=== PATIENT | female | born 1965 | race Caucasian/White ===

== ENCOUNTER 2019-05-08 14:45 | Outpatient (CLI) | payer BC, SELFPAY ==
--- NOTE | ~2019-05-08 | CT_ITS ---
EXAMINATION: CT abdomen pelvis w con DATE: 05/08/2019 16:08 INDICATION: Left lower quadrant abdominal pain. TECHNIQUE: Computed tomography (CT) of the abdomen and pelvis was performed with 100 mL Omnipaque 350 intravenous contrast. Automated exposure control and iterative reconstruction technique were employe d. The dose-length product was 1364.67 mGy-cm. COMPARISON: None. FINDINGS: The visualized portions of the lung bases demonstrate mild atelectasis. No pleural effusion . The heart size is normal. No pericardial effusion. The liver, gallbladder, spleen, pancreas, adrena l glands, and kidneys are normal. There are no dilated loops of bowel. There is wall thickening of th e proximal sigmoid colon. There are no pathologically enlarged lymph nodes. There is no free intraper itoneal fluid. There is a 2.3 cm nonaggressive lytic lesion in right ilium, likely benign. There is s evere lower lumbar spondylosis. There is a 1.7 cm hyperdense mass at the skin on the right posteriorl y at the level of L1. IMPRESSION: 1. Wall thickening of proximal sigmoid colon, consistent with colitis. 2. 1.7 cm mass at the skin on the right posteriorly at the level of L1. This finding may be benign or malignant. Correlate with physical exam. Reviewed, dictated and finalized at location A. [employer] IMPRESSION: 1. Wall thickening of proximal sigmoid colon, consistent with colitis. 2. 1.7 cm mass at the skin on the right posteriorly at the level of L1. This fi nding may be benign or malignant. Correlate with physical exam.
[2019-05-08 15:00] LABS: Basophils Absolute Auto 0.06 K/mm3 (0.00-0.10); Basophils Percent Auto 0.8 % (0.0-1.0); Eosinophils Absolute Auto 0.19 K/mm3 (0.02-0.50); Eosinophils Percent Auto 2.4 % (1.0-6.0); Hematocrit 41.5 % (35.0-49.0); Hemoglobin 14.2 g/dL (12.0-15.0); Immature Granulocyte Absolute 0.02 K/mm3 (0.00-0.00); Immature Granulocyte Percent A 0.3 % (0.0-0.0); Lymphocytes Absolute Auto 2.35 K/mm3 (1.10-4.50); Lymphocytes Percent Auto 29.9 % (18.0-42.0); Mean Corpuscular HGB Conc 34.2 g/dL (32.0-36.0); Mean Corpuscular Volume 87.6 fL (78.0-102.0); Monocytes Absolute Auto 0.59 K/mm3 (0.10-0.90); Monocytes Percent Auto 7.5 % (2.0-11.0); Neutrophils Absolute Auto 4.7 K/mm3 (1.7-7.2); Neutrophils Percent Auto 59.1 % (50.0-70.0); Platelet Count Result 246 K/mm3 (150-420); Red Blood Count 4.74 M/mm3 (4.20-5.40); Red Cell Distribution Width 12.6 % (11.6-14.4); White Blood Count 7.9 K/mm3 (4.8-10.8)
[2019-05-08 15:20] LABS: Iron 66 ug/dL (50-170); Percent Iron Saturation 21 % (12-57)
[2019-05-08 15:26] LABS: Alanine Aminotransferase 25 U/L (14-59); Albumin Level 3.9 g/dL (3.4-5.0); Alkaline Phosphatase 130 U/L (46-116); Anion Gap 12.7 mmol/L (7-16); Aspartate Amino Transferase 17 U/L (15-37); Bilirubin,Total 0.4 mg/dL (0.00-1.00); Blood Urea Nitrogen 16 mg/dL (7-18); CRP 0.8 mg/dL (0.0-0.9); Calcium 9.1 mg/dL (8.5-10.1); Carbon Dioxide 26 mmol/L (21-32); Chloride 107 mmol/L (98-108); Estimated Glomerular Filt Rate > 60; Ferritin 172 ng/mL (8-252); Glucose 89 mg/dL (70-99); Osmolality Calculated 294 mOsm/kg (285-295); Potassium 3.7 mmol/L (3.5-5.1); Sodium 142 mmol/L (136-145); Total Protein 7.8 g/dL (6.4-8.2)
[2019-05-08 15:35] LABS: Lactic Acid 0.6 mmol/L (0.4-2.0)
[2019-05-08 15:58] LABS: Erythrocyte Sedimentation Rate 25 mm/hr (0-20)
== END 2019-05-08 14:46 | disposition home or self-care (01) ==
PROVIDERS: PCP Internal Medicine; Visit Provider Internal Medicine
DX: R10.32 Left lower quadrant pain (principal); K92.1 Melena; R50.9 Fever, unspecified
CPT/HCPCS: 36415; 74177; 80053; 82728; 83540; 83550; 83605; 85025; 85652; 86140; Q9965

== ENCOUNTER 2019-06-23 00:36 | Day surgery (SDC) | payer BC, SELFPAY ==
[2019-06-18 10:34] VITALS: BMI 44.1
[2019-06-23] MEDS: LACTATED RINGERS 1,000 ML 150 ML IV CONT (11:23)
--- NOTE | 2019-06-23 11:26 | P.PNAN_ITS ---
Anes - Initial Pre Proc Eval Procedure: Operation Date: 06/23/19 12:00 Proposed Procedures p Colonoscopy - Gunner Mcmullen MD Date/Time: 06/23/19 11:26 Surgeon: Gunner Mcmullen MD Pre Op Diagnosis: Hematochezia Patient Data Age: 54 Gender: F Height: 5 ft 7 in Weight: 129.3 kg Allergies Allergy/AdvReac Type Severity Reaction Status Date / Time No Known Allergies Allergy Verified 06/23/19 11:17 Home Medications Medication Instructions Recorded Confirmed Type No Home Medications 06/18/19 06/18/19 History Patient hx anesthesia problems: none Family hx anesthesia problems: none [facility] Past Medical History Medical History (Updated 06/23/19 @ 11:26 by Saleem Farrell MD) Arthritis GERD (gastroesophageal reflux disease) Morbid obesity Anes - Eval Final PreProcedure Day of Procedure 06/23/19 11:26 Patient weight: morbidly obese Heart: regular rate and rhythm Lungs: clear to auscultation Airway: Mallampati scale class III Neurological: alert and oriented Last oral intake: >/= 8 hours ASA classification: III Emergent: no Anesthetic plan: proceed Anesthesia type and monitoring: general GIVS and standard monitoring Informed Consent: The patient's anesthetic plan and its attendant risks and benefits were discussed with the patient/family/POA. Questions were solicited and answers provided to the satisfaction of the patient/family/POA.
--- NOTE | 2019-06-23 11:29 | WPDANESEPPF ---
Anes - Initial Pre Proc Eval Procedure: Operation Date: 06/23/19 12:00 Proposed Procedures p Colonoscopy - Gunner Mcmullen MD Date/Time: 06/23/19 11:29 Surgeon: Gunner Mcmullen MD Pre Op Diagnosis: Hematochezia Patient Data Age: 54 Gender: F Height: 5 ft 7 in Weight: 129.3 kg Allergies Allergy/AdvReac Type Severity Reaction Status Date / Time No Known Allergies Allergy Verified 06/23/19 11:17 Home Medications Medication Instructions Recorded Confirmed Type No Home Medications 06/18/19 06/18/19 History Patient hx anesthesia problems: none Family hx anesthesia problems: none [facility] Past Medical History Medical History (Updated 06/23/19 @ 11:26 by Saleem Farrell MD) Arthritis GERD (gastroesophageal reflux disease) Morbid obesity Anes - Eval Final PreProcedure Day of Procedure 06/23/19 11:29 Patient weight: morbidly obese Heart: regular rate and rhythm Lungs: clear to auscultation Airway: Mallampati scale class III Neurological: alert and oriented Last oral intake: >/= 8 hours ASA classification: III Emergent: no Anesthetic plan: proceed Anesthesia type and monitoring: general GIVS and standard monitoring Informed Consent: The patient's anesthetic plan and its attendant risks and benefits were discussed with the patient/family/POA. Questions were solicited and answers provided to the satisfaction of the patient/family/POA.
--- NOTE | 2019-06-23 11:52 | PM.HPGS ---
History of Present Illness History of Present Illness Consent: Risks, benefits, and alternatives of a colonoscopy have been discussed and questions answered. Problems of possible perforation 1 out of a 1000 times has been discussed. Patient agrees to proceed with procedure. Chief complaint: Hematochezia Narrative: Geraldine Cerna is a 54 year old female Who is seen at the request of Dr. soto from [place] [id number]. Approximately 1 and half months ago she had onset of acute abdominal pain and later was found to have apparent colitis even though she had a normal white count. There was noted to be on CT scan on 05/08/2019 wall thickening of the proximal sigmoid colon. Her cbc and CMP were normal at that time lactic acid was 0.6. Patient stated that she had some blood per rectum for a few days prior to her CT scan on 05/08/2019. This has cleared up since then. She had no trouble tolerating her prep to come for this colonoscopy. She presents this time after a bowel prep for colonoscopy because of positive Hemoccult. She does have a previous history of Sigmoid polyp being removed in 2016. Review of Systems Constitutional: Constitutional: Reports no additional constitutional complaints, Reports fatigue and Denies malaise Eyes: Eyes: Denies change in vision and Denies loss of vision ENT: Reports Normal hearing present, Denies change in voice, Denies dizziness, Denies hoarseness and Denies sore throat Cardiovascular: Cardiovascular: Denies chest pain, Denies leg edema and Denies dyspnea Respiratory: Respiratory: Denies cough, Denies dyspnea and Denies wheezing Gastrointestinal: Gastrointestinal: Denies hematochezia, Denies change in bowel habits and Denies heartburn Genitourinary: Genitourinary: Denies urinary frequency and Denies urinary incontinence Neurologic: Reports Normal hearing present, Denies confusion, Denies dizziness, Denies loss of vision, Denies memory loss and Denies seizure-like activity Psychiatric: Psychiatric: Denies confusion, Denies depression and Denies memory loss Endocrine: Endocrine: Denies cold intolerance and Reports fatigue Hematologic/Lymphatic: Hematologic/Lymphatic: Denies easy bleeding and Denies easy bruising Allergic/Immunologic: Allergic/Immunologic: Denies wheezing PMFSH Past Medical History Medical History (Updated 06/23/19 @ 11:59 by Gunner Mcmullen MD) Arthritis Colitis without complication GERD (gastroesophageal reflux disease) History of colon polyps (~2015) Morbid obesity Meds Home Medications and Allergies Home Medications Medication Instructions Recorded Confirmed Type No Home Medications 06/18/19 06/18/19 History Allergies Allergy/AdvReac Type Severity Reaction Status Date / Time No Known Allergies Allergy Verified 06/23/19 11:17 Exam Const: General: cooperative, healthy appearing, no acute distress, well developed and alert; No confusion Nutritional Appearance: well nourished Orientation/consciousness: patient oriented x3 and No confusion Limitations: no limitations HENMT: Head: normal to inspection, normocephalic and atraumatic Ears: hearing grossly normal bilaterally General nose exam: Normal external nose present Face and sinus: no edema Mouth: Yes Normal oral and palatal mucosa present and Yes lip normal Throat: posterior oropharynx normal Eyes: General: appearance normal, both eyes and all related structures Sclera: sclerae normal Pupils: Equal, round and reactive pupils present EOM: EOMs intact bilaterally Neck: Neck: normal visual inspection, no lymphadenopathy, trachea midline and supple Resp: Effort & Inspection: normal respiratory effort and able to speak in complete sentences Auscultation: clear to auscultation bilaterally Cardio: Jugular venous distension: no JVD Rate: regular rate Rhythm: regular rhythm GI: Inspection: normal to inspection and obesity ( BMI 44) GI Palp: Yes Soft to palpation, No Tenderness to palpation present (GI)
[2019-06-23 13:40] VITALS: BP 137/76; PULSE 87; RESP 18; TEMP 36.6; O2SAT 100
[2019-06-23 13:50] VITALS: BP 144/76; PULSE 88; RESP 17; O2SAT 100
[2019-06-23 14:00] VITALS: BP 132/70; PULSE 78; RESP 14; O2SAT 100
== END 2019-06-23 14:21 | disposition home or self-care (01) ==
PROVIDERS: PCP Internal Medicine; Visit Provider Surgery
PROC: 0DJD8ZZ Inspection of Lower Intestinal Tract, Via Natural or Artificial Opening Endoscopic (ICD-10-PCS; CPT 45378; principal; 2019-06-23 12:00)
DX: K92.1 Melena (principal); D12.0 Benign neoplasm of cecum; K63.5 Polyp of colon; R19.4 Change in bowel habit; K21.9 Gastro-esophageal reflux disease without esophagitis; M19.90 Unspecified osteoarthritis, unspecified site; E66.01 Morbid (severe) obesity due to excess calories; Z68.41 Body mass index [BMI] 40.0-44.9, adult
CPT/HCPCS: 45380; 88305; J2704; J7120

== ENCOUNTER 2019-07-31 15:15 | Outpatient (CLI) | payer BC, SELFPAY ==
--- NOTE | ~2019-07-31 | XR_ITS ---
EXAMINATION: XR chest 2V DATE: 07/31/2019 16:28 INDICATION: Chronic cough, tachycardia TECHNIQUE: PA and lateral views of the chest are obtained. COMPARISON: None available FINDINGS: The lungs are free of acute opacities. There is no pleural effusion or pneumothorax. The ca rdiomediastinal silhouette is normal. There is mild thoracic spondylosis. A cardiac monitoring device projects over the subcutaneous tissues of the midline anterior chest wall. IMPRESSION: 1. No acute cardiopulmonary abnormality. Reviewed, dictated and finalized at location A.
--- NOTE | 2019-07-31 15:25 | ECG_ITS ---
Measurements Intervals [place] Rate: 79 P: 56 ME: 120 QRS: 53 QRSD: 90 T: 39 QT: 371 QTc: 426 Interpretive Statements SINUS RHYTHM POSSIBLE LEFT ATRIAL ENLARGEMENT BORDERLINE ST ABNORMALITY- ANTEROLATERAL LEADS BASELINE WANDER- AVF BORDERLINE ECG Electronically Signed On 07-31-2019 16:02:45 CDT by Berry Lawson D.O.
[2019-07-31 16:22] LABS: Basophils Absolute Auto 0.05 K/mm3 (0.00-0.10); Basophils Percent Auto 0.7 % (0.0-1.0); Eosinophils Absolute Auto 0.17 K/mm3 (0.02-0.50); Eosinophils Percent Auto 2.3 % (1.0-6.0); Hematocrit 41.3 % (35.0-49.0); Immature Granulocyte Absolute 0.02 K/mm3 (0.00-0.00); Immature Granulocyte Percent A 0.3 % (0.0-0.0); Lymphocytes Absolute Auto 1.82 K/mm3 (1.10-4.50); Lymphocytes Percent Auto 25.1 % (18.0-42.0); Mean Corpuscular HGB Conc 33.9 g/dL (32.0-36.0); Mean Corpuscular Hemoglobin 30.1 pg (27.0-31.0); Mean Corpuscular Volume 88.8 fL (78.0-102.0); Mean Platelet Volume 9.9 fl (9.2-11.8); Monocytes Absolute Auto 0.46 K/mm3 (0.10-0.90); Monocytes Percent Auto 6.4 % (2.0-11.0); Neutrophils Absolute Auto 4.7 K/mm3 (1.7-7.2); Neutrophils Percent Auto 65.2 % (50.0-70.0); Platelet Count Result 232 K/mm3 (150-420); Red Blood Count 4.65 M/mm3 (4.20-5.40); Red Cell Distribution Width 12.9 % (11.6-14.4); White Blood Count 7.2 K/mm3 (4.8-10.8)
[2019-07-31 16:48] LABS: BNP 33.2 pg/mL (0-100)
[2019-07-31 17:10] LABS: Alanine Aminotransferase 27 U/L (14-59); Albumin Level 3.8 g/dL (3.4-5.0); Alkaline Phosphatase 126 U/L (46-116); Anion Gap 11.1 mmol/L (7-16); Aspartate Amino Transferase 17 U/L (15-37); Bilirubin,Total 0.3 mg/dL (0.00-1.00); Blood Urea Nitrogen 25 mg/dL (7-18); Carbon Dioxide 28 mmol/L (21-32); Chloride 104 mmol/L (98-108); Estimated Glomerular Filt Rate > 60; Free T3 2.82 pg/mL (2.18-3.98); Free T4 Free Thyroxine 0.96 ng/dL (0.76-1.46); Glucose 85 mg/dL (70-99); Magnesium 1.9 mg/dL (1.8-2.4); Osmolality Calculated 291 mOsm/kg (285-295); Potassium 4.1 mmol/L (3.5-5.1); Sodium 139 mmol/L (136-145); Thyroid Stimulating Hormone 1.93 uIU/mL (0.36-3.74); Total Protein 7.2 g/dL (6.4-8.2)
[2019-08-02 21:30] LABS: Alpha-1-Antitrypsin, QN 138 mg/dL (83-199)
[2019-08-04 08:20] LABS: Immunoglobulin E 15 kU/L (<=114)
--- NOTE | 2019-09-01 09:45 | WPDHOLTEREM ---
Holter/Event Monitor Holter/Event Monitor Date of procedure: 07/31/19 Procedure Type: 30 day event monitor Indications: Palpitations Conclusion: 1. 30 day event monitor from 07/31/19-08/29/19. This is a symptom or auto trigger transmissions only. There are 12 available transmissions for analysis. 2. Underlying rhythm is sinus rhythm. Per transmissions, HR range 70-88 bpm. 3. No premature supraventricular complexes or arrhythmias. 4. There are intermittent premature ventriclar complexes. No ventricular tachycardia. 5. No signifiicant pauses greater than 3 seconds. 6. Patient reports 9 epsisodes of symptoms of shortness of breath, heart racing and symptom other than listed which demonstrate sinus rhythm, HR range 71-88 bpm and each episode had PVC's.
== END 2019-07-31 15:16 | disposition home or self-care (01) ==
PROVIDERS: PCP Internal Medicine; Visit Provider Internal Medicine
DX: R05 Cough (principal); R00.2 Palpitations; R06.00 Dyspnea, unspecified
CPT/HCPCS: 36415; 71046; 80053; 82103; 82785; 83735; 83880; 84439; 84443; 84481; 85025; 93005; 93270

== ENCOUNTER 2020-06-11 08:11 | Outpatient (CLI) | payer BC, SELFPAY ==
[2020-06-11 08:26] LABS: Basophils Absolute Auto 0.04 K/mm3 (0.00-0.10); Basophils Percent Auto 0.9 % (0.0-1.0); Eosinophils Absolute Auto 0.19 K/mm3 (0.02-0.50); Eosinophils Percent Auto 4.2 % (1.0-6.0); Hematocrit 39.9 % (35.0-49.0); Immature Granulocyte Absolute 0.01 K/mm3 (0.00-0.00); Immature Granulocyte Percent A 0.2 % (0.0-0.0); Lymphocytes Absolute Auto 1.74 K/mm3 (1.10-4.50); Lymphocytes Percent Auto 38.7 % (18.0-42.0); Mean Corpuscular HGB Conc 32.6 g/dL (32.0-36.0); Mean Corpuscular Hemoglobin 29.4 pg (27.0-31.0); Mean Corpuscular Volume 90.3 fL (78.0-102.0); Monocytes Percent Auto 8.9 % (2.0-11.0); Neutrophils Absolute Auto 2.1 K/mm3 (1.7-7.2); Neutrophils Percent Auto 47.1 % (50.0-70.0); Platelet Count Result 213 K/mm3 (150-420); Red Blood Count 4.42 M/mm3 (4.20-5.40); Red Cell Distribution Width 12.9 % (11.6-14.4); White Blood Count 4.5 K/mm3 (4.8-10.8)
[2020-06-11 08:27] LABS: Add Urine Microscopic? YES; Appearance Urine Sl Cloudy (Clear); Bilirubin Urine Negative (Negative); Blood Urine Negative (Negative); Color Urine Yellow (Yellow); Glucose Urine UA Negative (Negative); Ketones Urine Negative (Negative); Leukocyte Esterase Ur Negative LEU/UL (Negative); Nitrate Urine Negative (Negative); Protein Urine Negative (Negative); Specific Grav Ur >= 1.030 (1.010-1.020); Urobilinogen Urine 0.2 mg/dL (0.2-1.0); pH Urine 5.5 (5.0-8.0)
[2020-06-11 08:33] LABS: RBC Urine None seen /hpf (0-2); WBC Urine None seen /hpf (0-3)
[2020-06-11 08:34] LABS: Bacteria Urine 2+ /hpf; Squamous Epithelial Cell Urine Many /hpf (Few)
[2020-06-11 09:09] LABS: Alanine Aminotransferase 29 U/L (14-59); Albumin Level 3.7 g/dL (3.4-5.0); Alkaline Phosphatase 116 U/L (46-116); Anion Gap 9 mmol/L (8-16); Aspartate Amino Transferase 15 U/L (15-37); Bilirubin,Total 0.4 mg/dL (0.00-1.00); Blood Urea Nitrogen 18 mg/dL (7-18); Calcium 8.3 mg/dL (8.5-10.1); Carbon Dioxide 28 mmol/L (21-32); Chloride 108 mmol/L (98-108); Cholesterol 199 mg/dL (0-200); Estimated Glomerular Filt Rate > 60; Free T4 Free Thyroxine 0.95 ng/dL (0.76-1.46); Glucose 87 mg/dL (70-99); HDL Direct 52 mg/dL (40-60); LDL Cholesterol Calculated 127 mg/dL (<130); Osmolality Calculated 300 mOsm/kg (285-295); Potassium 4.1 mmol/L (3.5-5.1); Sodium 145 mmol/L (136-145); Thyroid Stimulating Hormone 2.72 uIU/mL (0.36-3.74); Total Protein 6.6 g/dL (6.4-8.2); Triglycerides 98 mg/dL (0-150)
[2020-06-15 12:11] LABS: Vitamin D 25 Hydroxy 13 ng/mL (30-100)
== END 2020-06-11 08:12 | disposition home or self-care (01) ==
LOC: CHSLAB 08:13
PROVIDERS: PCP Nurse Practitioner Family; Visit Provider Nurse Practitioner Family
DX: Z00.00 Encounter for general adult medical examination without abnormal findings (principal); E83.51 Hypocalcemia
CPT/HCPCS: 36415; 80053; 80061; 81001; 82306; 84439; 84443; 85025

== ENCOUNTER 2020-07-01 11:53 | Outpatient (CLI) | payer BC, SELFPAY ==
[2020-07-01 12:33] LABS: Occult Blood Negative (Negative)
[2020-07-01 12:34] LABS: Occult Blood Negative (Negative)
[2020-07-01 12:34] LABS: Occult Blood Negative (Negative)
== END 2020-07-01 11:54 | disposition home or self-care (01) ==
PROVIDERS: PCP Internal Medicine; Visit Provider Nurse Practitioner Family
DX: Z00.00 Encounter for general adult medical examination without abnormal findings (principal)
CPT/HCPCS: 82272; 82274

== ENCOUNTER 2020-07-25 08:03 | Outpatient (CLI) | payer BC, SELFPAY ==
--- NOTE | ~2020-07-25 | MM_ITS ---
EXAMINATION: MM screening [facility] BI w mima HISTORY: Screening mammogram TECHNIQUE: Craniocaudal and mediolateral oblique 3-D tomosynthesis images were obtained and synthetic 2-D images were generated. CAD analysis was submitted and interpreted. COMPARISON: 10/25/2016, 05/20/2015 BREAST PARENCHYMAL COMPOSITION: There are scattered areas of fibroglandular density. FINDINGS: There is no evidence of suspicious mass, calcification, or architectural distortion to sugg est malignancy in either breast. There has been no suspicious interval change. IMPRESSION: 1. No mammographic evidence of malignancy. 2. Recommend routine screening mammography in one year. BI-RADS Category 1: Negative Reviewed, dictated and finalized at location A.
== END 2020-07-25 08:04 | disposition home or self-care (01) ==
PROVIDERS: PCP Internal Medicine; Visit Provider Internal Medicine
DX: Z12.31 Encounter for screening mammogram for malignant neoplasm of breast (principal)
CPT/HCPCS: 77063; 77067

== ENCOUNTER 2021-01-03 08:01 | Outpatient (CLI) | payer BC, SELFPAY ==
[2021-01-03 08:51] LABS: Alanine Aminotransferase 29 U/L (14-59); Albumin Level 3.9 g/dL (3.4-5.0); Alkaline Phosphatase 128 U/L (46-116); Anion Gap 8 mmol/L (8-16); Aspartate Amino Transferase 11 U/L (15-37); Bilirubin,Total 0.4 mg/dL (0.00-1.00); Blood Urea Nitrogen 14 mg/dL (7-18); Carbon Dioxide 28 mmol/L (21-32); Chloride 107 mmol/L (98-108); Estimated Glomerular Filt Rate > 60; Glucose 83 mg/dL (70-99); Osmolality Calculated 295 mOsm/kg (285-295); Potassium 4.4 mmol/L (3.5-5.1); Sodium 143 mmol/L (136-145); Total Protein 7.1 g/dL (6.4-8.2)
[2021-01-03 09:00] LABS: Calcium 8.8 mg/dL (8.5-10.1)
[2021-01-06 13:20] LABS: Vitamin D 25 Hydroxy 31 ng/mL (30-100)
== END 2021-01-03 08:02 | disposition home or self-care (01) ==
LOC: CHSLAB 08:03
PROVIDERS: PCP Internal Medicine; Visit Provider Internal Medicine
DX: E55.9 Vitamin D deficiency, unspecified (principal)
CPT/HCPCS: 36415; 80053; 82306

== ENCOUNTER 2021-08-17 08:19 | Outpatient (CLI) | payer BC, SELFPAY ==
--- NOTE | ~2021-08-17 | MM_ITS ---
EXAMINATION: MM screening [facility] BI w mima HISTORY: Screening TECHNIQUE: Craniocaudal and mediolateral oblique 3-D tomosynthesis images were obtained and synthetic 2-D images were generated. CAD analysis was submitted and interpreted. COMPARISON: Comparison to multiple prior studies sequentially, with oldest reviewed study dated 12/13. BREAST PARENCHYMAL COMPOSITION: There are scattered areas of fibroglandular density. FINDINGS: There is no evidence of suspicious mass, calcification, or architectural distortion to sugg est malignancy in either breast. There has been no suspicious interval change. IMPRESSION: 1. No mammographic evidence of malignancy. 2. Recommend routine screening mammography in one year. BI-RADS Category 1: Negative Reviewed, dictated and finalized at location A.
== END 2021-08-17 08:20 | disposition home or self-care (01) ==
LOC: CHSIMG 08:21
PROVIDERS: PCP Internal Medicine; Visit Provider Internal Medicine
DX: Z12.31 Encounter for screening mammogram for malignant neoplasm of breast (principal)
CPT/HCPCS: 77063; 77067

== ENCOUNTER 2022-01-19 09:28 | Outpatient (CLI) | payer BC, SELFPAY ==
[2022-01-19 09:39] LABS: Basophils Absolute Auto 0.04 K/mm3 (0.00-0.10); Basophils Percent Auto 0.8 % (0.0-1.0); Eosinophils Absolute Auto 0.19 K/mm3 (0.02-0.50); Eosinophils Percent Auto 3.9 % (1.0-6.0); Hematocrit 39.6 % (35.0-49.0); Hemoglobin 13.2 g/dL (12.0-15.0); Immature Granulocyte Absolute 0.01 K/mm3 (0.00-0.00); Immature Granulocyte Percent A 0.2 % (0.0-0.0); Lymphocytes Absolute Auto 1.69 K/mm3 (1.10-4.50); Lymphocytes Percent Auto 34.6 % (18.0-42.0); Mean Corpuscular HGB Conc 33.3 g/dL (32.0-36.0); Mean Corpuscular Hemoglobin 29.7 pg (27.0-31.0); Mean Corpuscular Volume 89.2 fL (78.0-102.0); Mean Platelet Volume 9.9 fl (9.2-11.8); Monocytes Percent Auto 8.2 % (2.0-11.0); Neutrophils Absolute Auto 2.6 K/mm3 (1.7-7.2); Neutrophils Percent Auto 52.3 % (50.0-70.0); Platelet Count Result 215 K/mm3 (150-420); Red Blood Count 4.44 M/mm3 (4.20-5.40); Red Cell Distribution Width 12.6 % (11.6-14.4); White Blood Count 4.9 K/mm3 (4.8-10.8)
[2022-01-19 09:46] LABS: Add Urine Microscopic? NO; Appearance Urine Clear (Clear); Bilirubin Urine Negative (Negative); Blood Urine Negative (Negative); Color Urine Yellow (Yellow); Glucose Urine UA Negative (Negative); Ketones Urine Negative (Negative); Leukocyte Esterase Ur Negative LEU/UL (Negative); Nitrate Urine Negative (Negative); Protein Urine Negative (Negative); Specific Grav Ur >= 1.030 (1.010-1.020); Urobilinogen Urine 0.2 mg/dL (0.2-1.0)
[2022-01-19 10:12] LABS: Alanine Aminotransferase 26 U/L (14-59); Albumin Level 3.8 g/dL (3.4-5.0); Alkaline Phosphatase 126 U/L (46-116); Anion Gap 7 mmol/L (8-16); Aspartate Amino Transferase 15 U/L (15-37); Bilirubin,Total 0.5 mg/dL (0.00-1.00); Blood Urea Nitrogen 17 mg/dL (7-18); Calcium 8.7 mg/dL (8.5-10.1); Carbon Dioxide 29 mmol/L (21-32); Chloride 106 mmol/L (98-108); Cholesterol 238 mg/dL (0-200); Creatine Kinase 84 U/L (26-192); Estimated Glomerular Filt Rate > 60; Glucose 86 mg/dL (70-99); HDL Direct 55 mg/dL (40-60); LDL Cholesterol Calculated 160 mg/dL (<130); Osmolality Calculated 294 mOsm/kg (285-295); Sodium 142 mmol/L (136-145); Total Protein 6.9 g/dL (6.4-8.2); Triglycerides 115 mg/dL (0-150)
[2022-01-22 12:33] LABS: Vitamin D 25 Hydroxy 39 ng/mL (30-100)
== END 2022-01-19 09:29 | disposition home or self-care (01) ==
LOC: CHSLAB 09:30
PROVIDERS: PCP Internal Medicine; Visit Provider Internal Medicine
DX: Z00.00 Encounter for general adult medical examination without abnormal findings (principal); E55.9 Vitamin D deficiency, unspecified
CPT/HCPCS: 36415; 80053; 80061; 81003; 82306; 82550; 85025

== ENCOUNTER 2022-03-06 08:47 | Outpatient (CLI) | payer BC, SELFPAY ==
[2022-03-06 09:21] LABS: Anion Gap 8 mmol/L (8-16); Blood Urea Nitrogen 19 mg/dL (7-18); Carbon Dioxide 31 mmol/L (21-32); Chloride 104 mmol/L (98-108); Estimated Glomerular Filt Rate 60; Glucose 88 mg/dL (70-99); Osmolality Calculated 297 mOsm/kg (285-295); Sodium 143 mmol/L (136-145)
== END 2022-03-06 08:48 | disposition home or self-care (01) ==
LOC: CHSLAB 08:49
PROVIDERS: PCP Internal Medicine; Visit Provider Internal Medicine
DX: I10 Essential (primary) hypertension (principal)
CPT/HCPCS: 36415; 80048

== ENCOUNTER 2022-06-18 16:14 | Outpatient (CLI) | payer BC, SELFPAY ==
--- NOTE | ~2022-06-18 | XR_ITS ---
EXAM: XR foot RT min 3V DATE: 06/18/2022 16:33 HISTORY: right heel pain CHRONIC . COMPARISON: None available. FINDINGS: Normal mineralization. No fracture or dislocation. No lytic or blastic lesion. Moderate de generative change in multiple midfoot joints. Mild Achilles and moderate plantar enthesopathy. No ero wen or periosteal change. Soft tissues within normal limits. IMPRESSION: Moderate mid foot osteoarthritis. Moderate plantar enthesopathy. Reviewed, dictated and finalized at location K.
== END 2022-06-18 16:15 | disposition home or self-care (01) ==
LOC: CHSIMG 16:16
PROVIDERS: PCP Internal Medicine; Visit Provider Internal Medicine
DX: M79.671 Pain in right foot (principal); M19.071 Primary osteoarthritis, right ankle and foot; M77.31 Calcaneal spur, right foot
CPT/HCPCS: 73630

== ENCOUNTER 2022-08-09 00:55 | Day surgery (SDC) | payer BC, SELFPAY ==
[2022-07-26 14:26] VITALS: BMI 43.9
[2022-08-09 06:26] VITALS: BMI 46.8
[2022-08-09 06:29] VITALS: BP 149/74; PULSE 78; RESP 16; TEMP 36.2; O2SAT 97
[2022-08-09] MEDS: LACTATED RINGERS 1,000 ML 150 ML IV CONT (06:40)
--- NOTE | 2022-08-09 07:22 | P.PNAN_ITS ---
Anes - Initial Pre Proc Eval Procedure: Operation Date: 08/09/22 07:30 Proposed Procedures p Colonoscopy - Richard Donovan DO Date/Time: 08/09/22 07:22 Surgeon: Richard Donovan DO Pre Op Diagnosis: hx colon polyps Patient Data Age: 57 Gender: F Height: 1.7 m Weight: 135.8 kg Last Vital Signs Temp 97.1 F L 08/09/22 06:29 Pulse 78 08/09/22 06:29 Resp 16 08/09/22 06:29 BP 149/74 H 08/09/22 06:29 Pulse Ox 97 08/09/22 06:29 Allergies Allergy/AdvReac Type Severity Reaction Status Date / Time No Known Allergies Allergy Verified 08/09/22 06:22 Home Medications Medication Instructions Recorded Confirmed Type atorvastatin 10 mg tablet 10 mg PO DAILY 07/26/22 08/09/22 History losartan 50 mg-hydrochlorothiazide 1 tablet PO DAILY 07/26/22 08/09/22 History 12.5 mg tablet Patient hx anesthesia problems: none Family hx anesthesia problems: none Results Review: All pre-operative results and documents have been reviewed as part of the pre- operative evaluation. [facility] Past Medical History Medical History (Updated 06/23/19 @ 11:59 by Gunner Mcmullen*Sherman*MD) Arthritis Colitis without complication GERD (gastroesophageal reflux disease) History of colon polyps (~2015) Morbid obesity Anes - Eval Final PreProcedure Day of Procedure 08/09/22 07:22 Patient weight: morbidly obese Heart: regular rate and rhythm Lungs: clear to auscultation Airway: Mallampati scale class III Neurological: alert and oriented Last oral intake: >/= 8 hours ASA classification: III Emergent: no Anesthetic plan: proceed Anesthesia type and monitoring: general GIVS and standard monitoring Results Review: All pre-operative results and documents have been reviewed as part of the pre- operative evaluation. Informed Consent: The patient's anesthetic plan and its attendant risks and benefits were discussed with the patient/family/POA. Questions were solicited and answers provided to the satisfaction of the patient/family/POA.
--- NOTE | 2022-08-09 07:37 | PM.IMHP ---
H&P: HPI History of Present Illness Date/Time: 08/09/22 07:37 Chief Complaint: History of colon polyps Narrative: This is a 57-year-old woman who presents for colonoscopy. Her last colonoscopy was about 3 years ago. Polyps were removed at that time. She denies any hematochezia or melena. There is no first-degree relative family history of colon cancer but she does think she has a grandpa that had colon cancer. Review of Systems Review of Systems: All systems reviewed & are unremarkable except as noted in HPI and below Constitutional: Constitutional: Denies chills, Denies fever(s), Denies headache(s) and Denies weight loss Eyes: Eyes: Denies change in vision ENT: Denies dizziness, Denies headache(s), Denies neck mass and Denies throat swelling Cardiovascular: Cardiovascular: Denies chest pain, Denies lightheadedness and Denies dyspnea Respiratory: Respiratory: Denies cough, Denies dyspnea and Denies wheezing Gastrointestinal: Gastrointestinal: Denies abdominal pain, Denies change in bowel habits, Denies nausea and Denies vomiting Genitourinary: Genitourinary: Denies hematuria and Denies dysuria Musculoskeletal: Musculoskeletal: Reports as per HPI Integumentary/Breasts: Skin/Breast: Reports as per HPI Neurologic: Denies dizziness and Denies headache(s) Allergic/Immunologic: Allergic/Immunologic: Denies throat swelling and Denies wheezing [facility] Past Medical History Medical History (Updated 06/23/19 @ 11:59 by Gunner Noriega*MD) Arthritis Colitis without complication GERD (gastroesophageal reflux disease) History of colon polyps (~2015) Morbid obesity Meds Home Medications and Allergies Home Medications Medication Instructions Recorded Confirmed Type atorvastatin 10 mg tablet 10 mg PO DAILY 07/26/22 08/09/22 History losartan 50 mg-hydrochlorothiazide 1 tablet PO DAILY 07/26/22 08/09/22 History 12.5 mg tablet Allergies Allergy/AdvReac Type Severity Reaction Status Date / Time No Known Allergies Allergy Verified 08/09/22 06:22 Vital Signs Vital Signs - 24 hr 08/09/22 06:29 Temperature 36.2 C L Pulse Rate 78 Respiratory Rate 16 Blood Pressure 149/74 H Pulse Oximetry 97 Exam Const: General: no acute distress and alert Orientation/consciousness: patient oriented x3 HENMT: Head: normocephalic and atraumatic Ears: hearing grossly normal bilaterally Face/Nose/Sinus: Normal nares present Mouth: Yes Normal oral and palatal mucosa present Eyes: Periorbital: periorbital findings normal Sclera: sclerae normal EOM: EOMs intact bilaterally Neck: Neck: normal visual inspection, no lymphadenopathy and trachea midline Chest: Chest palpation & inspection: normal inspection of the chest Resp: Effort & Inspection: normal respiratory effort Auscultation: clear to auscultation bilaterally Cardio: Jugular venous distension: no JVD Rate: regular rate Rhythm: regular rhythm Heart sounds: S1 normal heart sound present and S2 normal heart sound present Peripheral pulses: Peripheral pulses 2+ throughout GI: Inspection: normal to inspection GI Palp: Yes Soft to palpation, No Tenderness to palpation present (GI), No Guarding due to palpation present (GI) and No Rebound tenderness present Percussion: Yes normal to percussion Auscultation: normal bowel sounds : General: Yes no CVA tenderness Back/Spine/Pelvis: Back: no CVA tenderness Neuro: General: patient oriented x3, no focal motor deficits and CN's II-XI intact bilaterally Cognition (Neuro): normal cognition Speech: normal speech Motor exam (neuro): 5/5 motor strength present throughout Extrem: General: capillary refill normal and no clubbing, cyanosis or edema Assessment and Plan Assessment and plan (1) History of colon polyps: Onset Date: ~2015 Code(s): Z86.010 - Personal history of colonic polyps Status: Acute Assessment and Plan: I have recommended colonoscopy. I have discussed
[2022-08-09 08:04] VITALS: BP 143/93; PULSE 88; RESP 34; O2SAT 99
[2022-08-09 08:14] VITALS: BP 141/85; PULSE 86; RESP 19; O2SAT 100
[2022-08-09 08:24] VITALS: BP 145/77; PULSE 70; RESP 20; O2SAT 100
== END 2022-08-09 08:39 | disposition home or self-care (01) ==
PROVIDERS: PCP Internal Medicine; Visit Provider Surgery
PROC: 0DJD8ZZ Inspection of Lower Intestinal Tract, Via Natural or Artificial Opening Endoscopic (ICD-10-PCS; CPT 45378; principal; 2022-08-09 07:30)
DX: Z12.11 Encounter for screening for malignant neoplasm of colon (principal); D12.0 Benign neoplasm of cecum; K57.30 Diverticulosis of large intestine without perforation or abscess without bleeding; E66.01 Morbid (severe) obesity due to excess calories; Z68.42 Body mass index [BMI] 45.0-49.9, adult
CPT/HCPCS: 45385; 88305; J2704; J7120

== ENCOUNTER 2022-09-06 12:04 | Outpatient (CLI) | payer BC, SELFPAY ==
--- NOTE | ~2022-09-06 | MM_ITS ---
EXAMINATION: MM screening [facility] BI w mima HISTORY: Screening mammogram TECHNIQUE: Craniocaudal and mediolateral oblique 3-D tomosynthesis images were obtained and synthetic 2-D images were generated. CAD analysis was submitted and interpreted. COMPARISON: 08/17/2021, 07/25/2020, 10/25/2016 bilateral screening mammogram examinations BREAST PARENCHYMAL COMPOSITION: There are scattered areas of fibroglandular density. FINDINGS: There is no evidence of suspicious mass, calcification, or architectural distortion to sugg est malignancy in either breast. There has been no suspicious interval change. IMPRESSION: 1. No mammographic evidence of malignancy. 2. Recommend routine screening mammography in one year. BI-RADS Category 1: Negative Reviewed, dictated and finalized at location A.
== END 2022-09-06 12:05 | disposition home or self-care (01) ==
LOC: CHSIMG 12:05
PROVIDERS: PCP Internal Medicine; Visit Provider Internal Medicine
DX: Z12.31 Encounter for screening mammogram for malignant neoplasm of breast (principal)
CPT/HCPCS: 77063; 77067

== ENCOUNTER 2022-09-19 16:50 | Outpatient (CLI) | payer BC, SELFPAY ==
[2022-09-20 13:49] LABS: Appearance Urine Clear (Clear); Color Urine Yellow (Yellow); Glucose Urine UA Negative (Negative); Ketones Urine Negative (Negative); Protein Urine Negative (Negative)
[2022-09-20 13:50] LABS: Add Urine Microscopic? NO; Bilirubin Urine Negative (Negative); Blood Urine Negative (Negative); Leukocyte Esterase Ur Negative LEU/UL (Negative); Nitrate Urine Negative (Negative); Urobilinogen Urine 0.2 mg/dL (0.2-1.0)
[2022-09-20 13:51] LABS: Alanine Aminotransferase 34 U/L (14-59); Anion Gap 9 mmol/L (8-16); Aspartate Amino Transferase 15 U/L (15-37); Bilirubin,Total 0.4 mg/dL (0.00-1.00); Blood Urea Nitrogen 19 mg/dL (7-18); Calcium 8.9 mg/dL (8.5-10.1); Carbon Dioxide 29 mmol/L (21-32); Chloride 106 mmol/L (98-108); Creatine Kinase 79 U/L (26-192); Estimated Glomerular Filt Rate > 60; Glucose 86 mg/dL (70-99); Osmolality Calculated 299 mOsm/kg (285-295); Potassium 4.3 mmol/L (3.5-5.1); Sodium 144 mmol/L (136-145)
[2022-09-20 13:52] LABS: Albumin Level 3.6 g/dL (3.4-5.0); Alkaline Phosphatase 142 U/L (46-116); Cholesterol 182 mg/dL (0-200); HDL Direct 52 mg/dL (40-60); LDL Cholesterol Calculated 105 mg/dL (<130); Total Protein 6.7 g/dL (6.4-8.2); Triglycerides 123 mg/dL (0-150)
[2022-09-20 14:07] LABS: Basophils Absolute Auto 0.04 K/mm3 (0.00-0.10); Basophils Percent Auto 0.7 % (0.0-1.0); Eosinophils Absolute Auto 0.26 K/mm3 (0.02-0.50); Eosinophils Percent Auto 4.7 % (1.0-6.0); Hemoglobin 13.2 g/dL (12.0-15.0); Immature Granulocyte Absolute 0.01 K/mm3 (0.00-0.00); Immature Granulocyte Percent A 0.2 % (0.0-0.0); Lymphocytes Absolute Auto 1.73 K/mm3 (1.10-4.50); Lymphocytes Percent Auto 31.5 % (18.0-42.0); Mean Corpuscular Volume 90.9 fL (78.0-102.0); Mean Platelet Volume 9.7 fl (9.2-11.8); Monocytes Percent Auto 7.3 % (2.0-11.0); Neutrophils Absolute Auto 3.1 K/mm3 (1.7-7.2); Neutrophils Percent Auto 55.6 % (50.0-70.0); Platelet Count Result 235 K/mm3 (150-420); Red Cell Distribution Width 12.8 % (11.6-14.4); White Blood Count 5.5 K/mm3 (4.8-10.8)
[2022-09-25 23:53] LABS: Vitamin D 25 Hydroxy 27 ng/mL (30-100)
== END 2022-09-19 16:51 | disposition home or self-care (01) ==
PROVIDERS: PCP Internal Medicine; Visit Provider Internal Medicine
DX: E55.9 Vitamin D deficiency, unspecified (principal); I10 Essential (primary) hypertension; E78.6 Lipoprotein deficiency
CPT/HCPCS: 36415; 80053; 80061; 81003; 82306; 82550; 85025

== ENCOUNTER 2022-11-15 02:56 | Day surgery (SDC) | payer BC, SELFPAY ==
[2022-11-07 15:42] VITALS: BMI 47.0
--- NOTE | 2022-11-07 15:46 | PC.NURSE ---
Report to the Outpatient Waiting Room, entrance under the green pavilion located off [facility], at time 0730 on date 11/15/22. Planned Procedure Time: 0930. Time changes happen often and if your time is changed the preop area will call you the afternoon before. - You and your visitor will be asked to self-screen and do not enter if you have any COVID symptoms. - A mask is optional within the hospital at this time. Patients may have clear liquids (water, carbonated beverages, clear teas, apple juice) until 3 hours prior to surgery with a maximum of 20 ounces. - No food from midnight until time of surgery Take the following medications with a SIP of water the morning of surgery: NONE DO NOT STOP ANY OF YOUR OTHER PRESCRIPTION MEDICATIONS PRIOR TO SURGERY ?EXCEPT THE FOLLOWING Medications to discontinue per physician: VITAMINS Date to take last dose: 11/11/22 Please no make-up, nail [place], hairspray, perfume, deodorant, or body powder the day of surgery. No jewelry (including any body piercings) or valuables the day of surgery, leave them at home. Please take a shower or bath the night before, or the morning of, surgery with an antibacterial soap. Wear comfortable, loose fitting clothing. - Jewelry must be removed prior to entering the operating room. Rings and piercings that are not removed may be cut off. - The hospital will not accept responsibility for valuables. - Please leave all valuables, including medications, at home the day of surgery. If you are going home after surgery, a licensed distribution driver must drive you home. - NO public transportation without another adult if you receive anesthesia. - We recommend that an adult stay with you for 24 hours following discharge. - We also recommend that you do not drive, make important decision, drink alcoholic beverages, or take any drugs that were not prescribed by your health care provider for at least 24 hours after your discharge time. Follow any additional instructions given to you from your surgeon. If you or anyone in your household have experienced Covid symptoms in the past week, please notify your surgeon or the nurse liaison at the phone number below for possible testing. Telephone instructions given to PT - AYLIN STARK and asked if any additional questions and then verbalized understanding. Patient advised to call surgeon office or pre surgery nurse liaison [phone] if any additional questions.
--- NOTE | 2022-11-15 07:02 | WPDHPUPDATE1 ---
History and Physical Update Update Date/Time: 11/15/22 07:02 History and Physical has been reviewed, including an updated exam of the patient. There are NO changes in the patient's condition. Risks, benefits, and alternatives have been discussed and questions answered. Patient agrees to proceed with procedure.
[2022-11-15] MEDS: LACTATED RINGERS 1,000 ML 30 ML IV CONT (08:00)
[2022-11-15] MEDS: KETOROLAC 15 MG/ML VIAL (*BKC) IV PUSH (08:12)
[2022-11-15] MEDS: ACETAMINOPHEN 500 MG TABLET 1000 MG PO (08:12)
--- NOTE | 2022-11-15 09:11 | WPDANESEPPF ---
Anes - Initial Pre Proc Eval Procedure: Operation Date: 11/15/22 09:30 Proposed Procedures p Excision of Mass Right Hallux - Balta Romeo MD Date/Time: 11/15/22 09:11 Surgeon: Balta Romeo MD Pre Op Diagnosis: right hallux mass Patient Data Age: 57 Gender: F Height: 1.7 m Weight: 136.1 kg Allergies Allergy/AdvReac Type Severity Reaction Status Date / Time No Known Allergies Allergy Verified 11/07/22 15:41 Home Medications Medication Instructions Recorded Confirmed Type atorvastatin 10 mg tablet 10 mg PO DAILY 07/26/22 11/07/22 History losartan 50 mg-hydrochlorothiazide 1 tablet PO DAILY 07/26/22 11/07/22 History 12.5 mg tablet waxkvyht-ngg-pioem ac 400 1 tablet PO DAILY 11/07/22 11/07/22 History mcg-calcium carb 500 mg-vit K1 20 mcg tablet (Women's 50 Plus Daily Formula) Patient hx anesthesia problems: none Family hx anesthesia problems: none Results Review: All pre-operative results and documents have been reviewed as part of the pre-operative evaluation. [facility] Past Medical History Medical History Arthritis Colitis without complication GERD (gastroesophageal reflux disease) History of colon polyps (~2015) Lymphedema due to venous disease Morbid obesity Subcutaneous mass of right foot Family History Family History Unknown Hypertension Arthritis Hyperlipidemia Social History Social History Smoking status: Never smoker Alcohol intake: never Substance use: never Substance use type: does not use Living arrangements: with family Gender identity (if verbalized by the patient): Female Spiritual care concerns: No Anes - Eval Final PreProcedure Day of Procedure 11/15/22 09:11 Patient weight: morbidly obese Heart: regular rate and rhythm Lungs: clear to auscultation Airway: Mallampati scale class II Neurological: alert and oriented Last oral intake: >/= 8 hours ASA classification: III Emergent: no Anesthetic plan: proceed Anesthesia type and monitoring: general and standard monitoring Results Review: All pre-operative results and documents have been reviewed as part of the pre-operative evaluation. Informed Consent: The patient's anesthetic plan and its attendant risks and benefits were discussed with the patient/family/POA. Questions were solicited and answers provided to the satisfaction of the patient/family/POA.
[2022-11-15] MEDS: ceFAZolin 3 GM/D5W 100 ML 100 ML IVPB (09:26)
[2022-11-15 10:05] VITALS: BP 117/66; PULSE 84; RESP 16; O2SAT 95
[2022-11-15] MEDS: BUPivacaine HCL 0.5% PF 30 ML VIAL 20 ML INFILTRATE (10:09)
--- NOTE | 2022-11-15 10:21 | W.PM.PROC2 ---
Procedure Note - Detailed Date of Procedure 11/15/22 Pre-op Diagnosis right hallux mass Post-op Diagnosis Same Procedure Performed excision right hallux mass with biopsy. 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 Presents for excision with biopsy. Findings 8 mm x 3 mm dark lesion hallux nail bed right foot. Description of Procedure Patient identified in the preoperative holding. Informed consent given. Operative extremity marked. Patient received intravenous antibiotics. Patient brought to the operating room where underwent Conscious sedation by anesthesia team. Positioned supine on operating room table. Time-out performed confirming the patient, site of the surgery and the plan. Right foot prepped and draped usual sterile surgical fashion using ChloraPrep skin solution. local anesthetic with 0.5% Marcaine plain for the right hallux. A dark lesion was visible under the toenail. Previous medial and lateral nail fold removal had been done yielding a narrow toenail. The nail was elevated off of the nail bed carefully with a [place]. Nail was then sharply removed. This exposed the lesion which was 8 x 3 mm. 15 blade knife was used to excise the lesion and nailbed in 1 unit. The removal piece was 9 mm x 4 mm. This was placed in a sterile specimen cup and taken to the lab for pathology. Hemostasis controlled with pressure. Antibiotic ointment then applied. Sterile dressing applied. The patient was then woken from anesthesia, extubated and taken to the recovery room in stable condition. All sponge, needle, instrument counts were correct at the end of the case. Estimated Blood Loss -5.0 Tourniquet Time 5 Drains No Packing Yes Pathology Yes ( hallux toenail specimen right foot) Complications None Condition Stable Disposition PACU [facility] Billing Surgery - Charge Forward: Surgery Billing ([id number])
[2022-11-15 10:35] VITALS: BP 119/67; PULSE 75; RESP 20
[2022-11-15 11:00] VITALS: BP 126/65; PULSE 68; RESP 20
== END 2022-11-15 11:08 | disposition home or self-care (01) ==
PROVIDERS: PCP Internal Medicine; Visit Provider Orthopaedic Surgery
PROC: (CPT 28289; principal; 2022-11-15 09:30)
DX: S90.211A Contusion of right great toe with damage to nail, initial encounter (principal); X58.XXXA Exposure to other specified factors, initial encounter; K21.9 Gastro-esophageal reflux disease without esophagitis; I89.0 Lymphedema, not elsewhere classified
CPT/HCPCS: 28039; 11730; 88304; 88312; A9270; J0690; J1885; J2250; J2405; J2704; J3010; J7120

== ENCOUNTER 2023-08-06 16:02 | Emergency (ER) | payer BC, SELFPAY ==
--- NOTE | ~2023-08-06 | XR_ITS ---
EXAM: XR ankle RT min 3V, XR foot RT min 3V DATE: 08/06/2023 17:14 HISTORY: pain . COMPARISON: X-ray right foot 06/18/2022, x-ray right ankle 12/31/2014. FINDINGS: Normal mineralization. No fracture or dislocation. No lytic or blastic lesion. Mild tibiot alar and moderate midfoot degenerative changes. Pes planus. Mild Achilles and moderate plantar enthes opathy. No erosion or periosteal change. Soft tissues within normal limits. IMPRESSION: No acute osseous finding in the right ankle or foot. Reviewed, dictated and finalized at location K. IMPRESSION: No acute osseous finding in the right ankle or foot.
--- NOTE | ~2023-08-06 | XR_ITS ---
EXAM: XR knee RT 3V DATE: 08/06/2023 17:14 HISTORY: pain . COMPARISON: 10/16/2014. FINDINGS: Normal mineralization. No fracture or dislocation. No lytic or blastic lesion. Tricompartm ental right knee osteoarthritis, severe in the patellofemoral and medial compartments. No erosion or periosteal change. Soft tissues within normal limits. IMPRESSION: No acute osseous finding in the right knee. Reviewed, dictated and finalized at location K.
[2023-08-06 16:02] VITALS: BP 189/98; PULSE 85; RESP 18; TEMP 36.3; O2SAT 97
--- NOTE | 2023-08-06 16:12 | ED.LOWEXIN ---
HPI - Extremity Injury (Lower) General Chief Complaint: Extremity Problem,Nontraumatic Stated Complaint: rt foot pain Time Seen by Provider: 08/06/23 16:12 Source: patient Mode of arrival: ambulatory Limitations: no limitations History of Present Illness HPI Narrative: patient is a 58-year-old female with a right foot and ankle pain for the past month. She has a primary doctor appointment next week. She also has some radiating pain to the right knee. no specific injuries. MD complaint: other Onset (ago): month(s) (1) Type of Injury: other ( No injury but pain has been continued for 1 month getting worse) Place: home, work and street/outdoors Severity: moderate Severity scale (1-10): 6 Relieving factors: nothing Exacerbating factors: weight bearing, movement and palpation Associated symptoms: able to partially bear weight Other symptoms: none Treatments prior to arrival: NSAIDS Related Data Home Medications Medication Instructions Recorded Confirmed atorvastatin 10 mg tablet 10 mg PO DAILY 07/26/22 08/06/23 losartan 50 mg-hydrochlorothiazide 2 tablet PO DAILY 07/26/22 08/06/23 12.5 mg tablet evyefrrh-jpi-arrhh ac 400 1 tablet PO DAILY 11/07/22 08/06/23 mcg-calcium carb 500 mg-vit K1 20 mcg tablet (Women's 50 Plus Daily Formula) Allergies Allergy/AdvReac Type Severity Reaction Status Date / Time No Known Allergies Allergy Verified 08/06/23 16:13 Review of Systems Review of Systems: All systems reviewed & are unremarkable except as noted in HPI and below Constitutional: Constitutional: Reports no additional constitutional complaints Eyes: Eyes: Reports no additional eye complaints ENT: Reports system reviewed and no additional complaints, except as documented Cardiovascular: Cardiovascular: Reports no additional cardiovascular complaints Respiratory: Respiratory: Reports no additional respiratory complaints Gastrointestinal: Gastrointestinal: Reports no additional gastrointestinal complaints Genitourinary: Genitourinary: Reports no additional female genitourinary complaints Musculoskeletal: Musculoskeletal: Reports no additional musculoskeletal complaints Integumentary/Breasts: Skin/Breast: Reports system reviewed and no additional complaints, except as docu Neurologic: Reports system reviewed and no additional complaints, except as documented Psychiatric: Psychiatric: Reports no additional psychiatric complaints Endocrine: Endocrine: Reports no additional endocrine complaints Hematologic/Lymphatic: Hematologic/Lymphatic: Reports no additional hematologic/lymphatic complaints Allergic/Immunologic: Allergic/Immunologic: Reports no additional allergic/immunologic complaints PMFSH Past Medical History Medical History Arthritis Colitis without complication GERD (gastroesophageal reflux disease) History of colon polyps (~2015) Lymphedema due to venous disease Morbid obesity Subcutaneous mass of right foot Family History Family History Unknown Hypertension Arthritis Hyperlipidemia Social History Social History Smoking status: Never smoker Alcohol intake: never Substance use: never Substance use type: does not use Living arrangements: with family Gender identity (if verbalized by the patient): Female Spiritual care concerns: No Exam Const: General: healthy appearing Nutritional Appearance: well nourished Orientation/consciousness: patient oriented x3 HENMT: Head: normal to inspection Ears: external ears normal Face/Nose/Sinus: Normal external nose present Eyes: Conjunctivae: conjunctivae normal Pupils: Equal, round and reactive pupils present EOM: EOMs intact bilaterally Neck: Neck: normal visual inspection Chest: Chest palpation & inspection: normal inspection of the chest Resp: Effo
--- NOTE | 2023-08-06 17:24 | PC.NURSE ---
PT HAS FRIEND AT BEDSIDE, AWAITING RAD RESULTS AT THIS TIME. NAD NOTED. WILL CONTINUE TO MONITOR.
[2023-08-06 17:48] VITALS: BP 176/88; PULSE 80; RESP 16; O2SAT 98
== END 2023-08-06 17:48 | disposition home or self-care (01) ==
PROVIDERS: Emergency Provider Emergency Medicine; PCP Internal Medicine
DX: M79.18 Myalgia, other site (principal); K21.9 Gastro-esophageal reflux disease without esophagitis; E66.01 Morbid (severe) obesity due to excess calories; Z68.42 Body mass index [BMI] 45.0-49.9, adult
CPT/HCPCS: 73562; 73610; 73630; 99284

== ENCOUNTER 2023-09-09 09:06 | Outpatient (CLI) | payer BC, SELFPAY ==
--- NOTE | ~2023-09-09 | XR_ITS ---
Right ankle Technique: AP, oblique, and lateral views were obtained. Clinical History: Pain Findings: No acute fracture or dislocation is seen. Osseous alignment is anatomic. Ankle mortise and other visualized joint spaces are preserved. Plantar calcaneal spur present. There is moderate degene rative change at the naviculocuneiform articulations. Soft tissues are otherwise unremarkable. Impression: Degenerative changes, as above. No acute fracture or dislocation evident. Reviewed, dictated and finalized at location M. Impression: Degenerative changes, as above. No acute fracture or dislocation evident.
--- NOTE | ~2023-09-09 | XR_ITS ---
Right foot Technique: AP, oblique, and lateral views were obtained. Clinical History: Pain Findings: No acute fracture or dislocation is seen. Possible pes planus. There is moderate degenerati ve change of the naviculocuneiform articulation. Plantar calcaneal spur present. Soft tissues are unr emarkable. Impression: Degenerative changes, as above. Possible pes planus. Reviewed, dictated and finalized at location M. Impression: Degenerative changes, as above. Possible pes planus.
[2023-09-09 09:47] LABS: Appearance Urine Sl Cloudy (Clear); Bilirubin Urine Negative (Negative); Blood Urine Negative (Negative); Color Urine Yellow (Yellow); Glucose Urine UA Negative (Negative); Ketones Urine Negative (Negative); Leukocyte Esterase Ur Trace (Negative); Nitrate Urine Negative (Negative); Protein Urine Negative (Negative); Specific Grav Ur >= 1.030 (1.010-1.020); Urobilinogen Urine 0.2 mg/dL (0.2-1.0); pH Urine 5.5 (5.0-8.0)
[2023-09-09 09:53] LABS: Add Urine Microscopic? YES; Alanine Aminotransferase 33 U/L (14-59); Albumin Level 3.8 g/dL (3.4-5.0); Alkaline Phosphatase 138 U/L (46-116); Anion Gap 10 mmol/L (4-12); Aspartate Amino Transferase 19 U/L (15-37); Bacteria Urine 2+ /hpf; Bilirubin,Total 0.4 mg/dL (0.00-1.00); Blood Urea Nitrogen 21 mg/dL (7-18); Calcium 8.9 mg/dL (8.5-10.1); Carbon Dioxide 27 mmol/L (21-32); Chloride 105 mmol/L (98-108); Cholesterol 177 mg/dL (0-200); Creatine Kinase 84 U/L (26-192); Estimated Glomerular Filt Rate > 60; Glucose 87 mg/dL (70-99); HDL Direct 54 mg/dL (40-60); LDL Cholesterol Calculated 106 mg/dL (<130); Osmolality Calculated 296 mOsm/kg (285-295); Potassium 4.2 mmol/L (3.5-5.1); RBC Urine None seen /hpf (0-2); Sodium 142 mmol/L (136-145); Squamous Epithelial Cell Urine Moderate /hpf (Few); Total Protein 7.1 g/dL (6.4-8.2); Triglycerides 84 mg/dL (0-150); WBC Urine 0-3 /hpf (0-3)
== END 2023-09-09 09:07 | disposition home or self-care (01) ==
PROVIDERS: PCP Internal Medicine; Visit Provider Orthopaedic Surgery
DX: M25.571 Pain in right ankle and joints of right foot (principal); M79.671 Pain in right foot; I10 Essential (primary) hypertension; E78.2 Mixed hyperlipidemia
CPT/HCPCS: 36415; 73610; 73630; 80053; 80061; 81001; 82550

== ENCOUNTER 2023-09-13 07:12 | Outpatient (CLI) | payer BC, SELFPAY ==
--- NOTE | ~2023-09-13 | DEXA_ITS ---
? Bone Density Report? Name:? AYLIN STARK Patient ID:??? [id number] Age:? 58 Sex:? Female Ethnicity:? White Date of : 1965 Indication: postmenopausal; screening for osteoporosis; height loss; prior fracture; hysterectomy; Referring Provider: GELY POLLARD Study: Bone densitometry was performed. Exam Date: September 13, 2023 Accession number: [id number] Bone Density: Region? BMD??? T-score? Z-score?? Classification AP Spine(L1-L4)? 1.124??? 0.7?2.0? Normal Femoral Neck (Left)? 1.029??? 1.6? 2.8? Normal Total Hip (Left)? 1.082??? 1.1 ?2.0? Normal Femoral Neck (Right)? 0.992??? 1.3? 2.5? Normal Total Hip (Right)? 1.066??? 1.0? 1.9? Normal Femoral Neck Mean? 1.011??? 1.5? 2.7? Normal Total Hip Mean? 1.074??? 1.1? 2.0? Normal World Health Organization criteria for BMD impression classify patients as: Normal (T-score at or above -1.0), Osteopenia (T-score between -1.0 and -2.5), or Osteoporosis (T-score at or below -2.5). 10-year Fracture Risk: FRAX not reported because: ? All T-scores for Spine Total, Hip Total, Femoral Neck at or above -1.0 Clinical Information Provided by Patient: Has had a low trauma fracture Has the following medical conditions: Hysterectomy Patient maximum height was 67.5 Menopause Age: 45 No regular weight bearing exercise Does not regularly consume dairy products Drinks caffeinated beverages Onset of menses at age 13 Number of children 1 Impression: The patient has normal bone mass. The patient has risk factors, including: previous fracture. Discussion: BONE DENSITY IS ABOVE THE MINIMUM DESIRABLE LEVEL AT ALL SKELETAL SITES TESTED. This patient?s bone mineral density is above the minimum desirable level (T- score -1.0 or better) at all sites measured. The patient should follow a healthful lifestyle (good nutrition with adequate calcium and vitamin D, and appropriate weight-bearing exercise). Follow-Up: Consider repeating this study in 5 years or sooner if there is some new clinical indication. Reported by: Dr. Javi Mir on 09/16/2023 10:13:00 AM. [facility]
--- NOTE | ~2023-09-13 | MM_ITS ---
EXAMINATION: MM screening [facility] BI w [facility] HISTORY: Screening TECHNIQUE: Craniocaudal and mediolateral oblique 3-D tomosynthesis images were obtained and synthetic 2-D images were generated. CAD analysis was submitted and interpreted. COMPARISON: Comparison to multiple prior studies sequentially, with oldest reviewed study dated 01/07. BREAST PARENCHYMAL COMPOSITION: There are scattered areas of fibroglandular density. FINDINGS: There is no evidence of suspicious mass, calcification, or architectural distortion to sugg est malignancy in either breast. There has been no suspicious interval change. IMPRESSION: 1. No mammographic evidence of malignancy. 2. Recommend routine screening mammography in one year. BI-RADS Category 1: Negative Reviewed, dictated and finalized at location B.
== END 2023-09-13 07:13 | disposition home or self-care (01) ==
LOC: CHSIMG 07:13
PROVIDERS: PCP Internal Medicine; Visit Provider Internal Medicine
DX: Z12.31 Encounter for screening mammogram for malignant neoplasm of breast (principal); Z78.0 Asymptomatic menopausal state
CPT/HCPCS: 77063; 77067; 77080

== ENCOUNTER 2023-11-28 07:31 | Outpatient (CLI) | payer BC, SELFPAY ==
--- NOTE | ~2023-11-28 | US_ITS ---
US arterial ankle brachial ind INDICATION: Peripheral arterial disease TECHNIQUE: Segmental pressures and plethysmographic and Doppler waveforms of the brachial and lower e xtremity arteries were obtained. COMPARISON: None. FINDINGS: Right and left brachial artery pressures of 123 mm Hg and 111 mm Hg, respectively, are concordant (no rmal difference <= 30 mmHg). The right ankle-brachial index (KALA) is 1.21 (normal >= 0.9-1.0). The right great toe-brachial index (TBI) is 0.9 (normal >= 0.60). The left KALA is 1.24. The left TBI is 0.86. IMPRESSION: 1. Normal ankle-brachial indices. Reviewed, dictated and finalized at location B.
== END 2023-11-28 07:32 | disposition home or self-care (01) ==
LOC: CHSIMG 07:32
PROVIDERS: PCP Internal Medicine; Visit Provider Internal Medicine
DX: I73.9 Peripheral vascular disease, unspecified (principal)
CPT/HCPCS: 93922

== ENCOUNTER 2024-09-23 08:31 | Outpatient (CLI) | payer BC, SELFPAY ==
--- NOTE | ~2024-09-23 | MM_ITS ---
EXAMINATION: MM screening [facility] HISTORY: Screening TECHNIQUE: Craniocaudal and mediolateral oblique 3-D tomosynthesis images were obtained and synthetic 2-D images were generated. CAD analysis was submitted and interpreted. COMPARISON: Comparison to multiple prior studies sequentially, with oldest reviewed study dated 05/20. BREAST PARENCHYMAL COMPOSITION: Not dense: There are scattered areas of fibroglandular density. FINDINGS: There is no evidence of suspicious mass, calcification, or architectural distortion to sugg est malignancy in either breast. There has been no suspicious interval change. IMPRESSION: 1. No mammographic evidence of malignancy. 2. Recommend routine screening mammography in one year. BI-RADS Category 1: Negative Reviewed, dictated and finalized at location A.
== END 2024-09-23 08:32 | disposition home or self-care (01) ==
PROVIDERS: PCP Internal Medicine; Visit Provider Internal Medicine
DX: Z12.31 Encounter for screening mammogram for malignant neoplasm of breast (principal)
CPT/HCPCS: 77063; 77067

== ENCOUNTER 2025-01-06 15:00 | Outpatient (RCR) | payer BC, SELFPAY ==
--- NOTE | 2024-12-29 11:20 | PTOPEVAL1 ---
Assessment and note entered by Dora Herrera DPT Evaluation Information Assessment Status Evaluation Diagnosis low back pain, sciatic pain ICD-10 Condition Codes (PT) Radiculopathy, lumbar region M54.16 Other ICD-10 Condition Codes ( M54.42 PT) Onset 12/23/24 Subjective Information Patient reports about a month ago she woke up with pain down the L LE. She reports that pain starts in the glute and travels down into the calf. She reports that pain is present at all times but medication does help with intensity. Patient reports pain is worse with sit to stand, first initial steps and in the mornings. She also reports that putting shoes and socks on is difficult along with twisting. She reports she is only able to sleep on the R side. She reports that she does nerve glides and LTR at home. She reports that she does not have a follow up scheduled with MD at this time. Reported Pain Level Pain Score 1: Self Report Assessment PT Clinical Summary Ms. Cerna is a 59 year old female who presents to PT with low back and L LE pain. She demonstrates decreased L LE pain, decreased B hip strength and decreased lumbar ROM limiting her ability to sleep , stand up from a chair and dress. She would benefit from skilled PT to address impairments and return to PLOF. Plan of Care Interventions Electrical Stimulation,Gait Training,Hot Pack/Cold Pack,Manual Therapy,Neuro Re-education,Patient/ Caregiver Education,Therapeutic Activities, Therapeutic Exercise PT Services Indicated Yes Treatment Frequency and 2x weekly for 10 visits Duration These treatments will address the objective and functional deficits as defined above. The patient will be advanced safely and appropriately in order for the patient to progress towards his/her prior level of function. Additional exercises will be introduced and as well as a comprehensive home exercise program upon discharge, if needed, ?to ensure carryover of functional gains achieved in the clinic. This treatment plan has been reviewed and agreement upon by the patient.
== END 2025-01-13 20:00 | disposition home or self-care (01) ==
LOC: CHSPT 15:00
PROVIDERS: Visit Provider Nurse Practitioner Family
DX: M54.42 Lumbago with sciatica, left side (principal)
CPT/HCPCS: 97110; 97112; 97140; 97161

== ENCOUNTER 2025-01-13 16:16 | Outpatient (CLI) | payer BC, SELFPAY ==
--- NOTE | ~2025-01-13 | XR_ITS ---
XR lumbar spine 2-3V Indication: PAIN Comparison: None Findings: Mild dextroconvex scoliosis. Moderate loss of vertebral height throughout. Grade 1 anterolisthesis L3 on L4, no fracture identified. Moderate loss of disc height at L4-5 and L5-S1. Soft tissues unremarkable Impression: No acute abnormality. Reviewed, dictated and finalized at location P. Impression: No acute abnormality.
--- NOTE | ~2025-01-13 | XR_ITS ---
EXAMINATION: XR sacroiliac joints min 3V, 01/13/2025 16:30 CDT HISTORY: PAIN COMPARISON: No comparisons available. Findings: No acute fracture or malalignment. Minimal sclerosis of the sacroiliac joints with no bridging osteophyte formation or erosions identified Soft tissues unremarkable. Impression: No acute fracture or malalignment. Reviewed, dictated and finalized at location P. Impression: No acute fracture or malalignment.
[2025-01-13 16:29] LABS: Hematocrit 41.1 % (35.0-49.0); Hemoglobin 13.5 g/dL (12.0-15.0); Mean Corpuscular HGB Conc 32.8 g/dL (32-36); Mean Corpuscular Hemoglobin 30.8 pg (27.0-31.0); Mean Corpuscular Volume 93.6 fL (78.0-102.0); Platelet Count Result 255 K/mm3 (150-420); Red Blood Count 4.39 M/mm3 (4.20-5.40); White Blood Count 6.0 K/mm3 (4.8-10.8)
[2025-01-13 16:30] LABS: Add Urine Microscopic? YES; Appearance Urine Clear (Clear); Glucose Urine UA Negative (Negative); Leukocyte Esterase Ur 1+ (Negative); Nitrate Urine Negative (Negative); Specific Grav Ur <= 1.005 (1.010-1.020)
[2025-01-13 17:06] LABS: Alanine Aminotransferase 37 U/L (6-35); Albumin Level 4.8 g/dL (3.5-5.1); Alkaline Phosphatase 95 U/L (38-126); Anion Gap 9 mmol/L (4-12); Aspartate Amino Transferase 32 U/L (14-36); Bilirubin,Total 0.7 mg/dL (0.2-1.3); Blood Urea Nitrogen 20 mg/dL (7-17); CRP < 0.5 mg/dL (<1.0); Calcium 10.3 mg/dL (8.4-10.2); Carbon Dioxide 31 mmol/L (22-30); Chloride 102 mmol/L (98-107); Cholesterol 161 mg/dL (0-200); Estimated Glomerular Filt Rate > 60; Glucose 83 mg/dL (65-110); HDL Direct 63 mg/dL; Osmolality Calculated 295 mOsm/kg (285-295); Potassium 4.3 mmol/L (3.4-5.0); Sodium 142 mmol/L (137-145); Total Protein 8.3 g/dL (6.3-8.2); Triglycerides 74 mg/dL (<150)
[2025-01-13 17:13] LABS: Hemoglobin A1C 5.1 % (<5.7)
[2025-01-13 17:20] LABS: Free T3 2.99 pg/mL (2.18-3.98)
[2025-01-13 17:22] LABS: Free T4 Free Thyroxine 0.94 ng/dL (0.78-2.19)
[2025-01-13 17:35] LABS: Thyroid Stimulating Hormone 1.940 uIU/mL (0.465-4.680)
== END 2025-01-13 16:17 | disposition home or self-care (01) ==
LOC: CHSLAB 16:19
PROVIDERS: PCP Internal Medicine; Visit Provider Internal Medicine
DX: Z00.00 Encounter for general adult medical examination without abnormal findings (principal); I10 Essential (primary) hypertension; E53.9 Vitamin B deficiency, unspecified; M54.50 Low back pain, unspecified; M54.16 Radiculopathy, lumbar region; M25.50 Pain in unspecified joint; E66.89 Other obesity not elsewhere classified; Z13.1 Encounter for screening for diabetes mellitus
CPT/HCPCS: 36415; 72100; 72202; 80053; 80061; 81001; 82306; 83036; 84439; 84443; 84481; 85027; 85652; 86140

== ENCOUNTER 2025-02-15 09:00 | Outpatient (CLI) | payer BC, SELFPAY ==
[2025-02-15 09:34] LABS: Alanine Aminotransferase 42 U/L (6-35); Albumin Level 4.6 g/dL (3.5-5.1); Alkaline Phosphatase 106 U/L (38-126); Anion Gap 7 mmol/L (4-12); Aspartate Amino Transferase 38 U/L (14-36); Bilirubin,Total 1.4 mg/dL (0.2-1.3); Blood Urea Nitrogen 19 mg/dL (7-17); Calcium 9.5 mg/dL (8.4-10.2); Carbon Dioxide 29 mmol/L (22-30); Chloride 108 mmol/L (98-107); Estimated Glomerular Filt Rate 55; Glucose 84 mg/dL (65-110); Osmolality Calculated 299 mOsm/kg (285-295); Potassium 4.1 mmol/L (3.4-5.0); Sodium 144 mmol/L (137-145); Total Protein 7.0 g/dL (6.3-8.2)
== END 2025-02-15 09:01 | disposition home or self-care (01) ==
LOC: CHSLAB 09:01
PROVIDERS: PCP Internal Medicine; Visit Provider Internal Medicine
DX: R94.5 Abnormal results of liver function studies (principal)
CPT/HCPCS: 36415; 80053

== ENCOUNTER 2025-02-28 12:50 | Emergency (ER) | payer BC, SELFPAY ==
--- NOTE | ~2025-02-28 | CT_ITS ---
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 leg/ LLQ abd. pain x3 months COMPARISON: No comparisons available. TECHNIQUE: CTA scan with 3D Reconstructions of the chest, abdomen and pelvis was performed with contrast Isovue 300, 92cc injected IV. One or more of the following dose reduction techniques were used: automated exposure control, adjustment of the mA and/or kV according to patient size, use of iterative reconstruction technique. Unless otherwise stated, incidental findings do not require dedicated follow up imaging FINDINGS: CT chest: No significant coronary calcification is present ([id number]) LUNGS: There is no gross central pulmonary embolism identified. No tracheomalacia. No bronchiectasis. Minimal emphysematous changes. Minimal pulmonary fibrotic changes. Apical scarring is noted bilaterally. HEART AND PERICARDIUM: Within normal limits. AORTA: No aneurysm or dissection is demonstrated. MEDIASTINUM: Unremarkable. THYROID: Subcentimeter thyroid nodules. CT abdomen: LIVER: Unremarkable, liver contours intact, no lesions. SPLEEN: Unremarkable, no splenomegaly. KIDNEYS: Right Kidney: Unremarkable. No calculi. No hydronephrosis. Left Kidney: Unremarkable. No calculi. No hydronephrosis ADRENAL GLANDS: Unremarkable. PANCREAS: GALLBLADDER/BILIARY: Nonspecific mild distention of the gallbladder. STOMACH AND ESOPHAGUS: The stomach is decompressed. BOWEL/MESENTERY: Moderate fecal content. No colitis or diverticulitis. The appendix is normal. No stranding within the mesentery. No thickening or dilated loops of small bowel. RETROPERITONEUM: Unremarkable AORTA/VASCULATURE: Normal caliber aorta. FREE FLUID OR FREE AIR: No free fluid.. CT pelvis: SOLID ORGANS/REPRODUCTIVE: Post hysterectomy. No adnexal mass. BLADDER: Within normal limits. LYMPHADENOPATHY: No lymphadenopathy. OSSEOUS STRUCTURES: No sclerotic or lytic lesions. No acute rib fractures.Moderate to severe loss of disc at L5-S1 with moderate canal and foraminal stenosis. OVERLYING SOFT TISSUES: Unremarkable. IMPRESSION: 1. No acute process identified. Incidental findings above Reviewed, dictated and finalized at location P. ING QUALITY STANDARD INSPECTOR
[2025-02-28 12:50] VITALS: BP 145/88; PULSE 112; RESP 22; TEMP 36.8; O2SAT 100
--- NOTE | 2025-02-28 13:04 | ED_ITS ---
HPI - Back Pain/Injury General Chief Complaint: Back Pain/Injury Stated Complaint: back pain Time Seen by Provider: 02/28/25 13:04 Source: patient Mode of arrival: wheelchair Limitations: no limitations History of Present Illness HPI Narrative: Patient is a 60-year-old female with a acute lower back pain that radiates to the left lower extremity which is been going on for the past 2 months but worse today. Her primary doctor did an MRI which shows a compression of her L-spine onto a disc and nerves. She is being treated medically and not surgically at this time and has an appointment to see a pain management upcoming soon. She is not having numbness of the groin or bowel or urine loss. No injury. MD elicited complaint: back pain Pertinent past history: prior back pain Onset (ago): day(s) (Acute on chronic back pain that radiates to the abdomen from the lumbar spine and down the left leg over the past few days) Timing: constant Severity: severe Pain scale (0-10): 8 Similar Symptoms Previously: Yes Quality: burning, sharp, stabbing, tingling, spasming and throbbing Location: lumbar spine Radiation: abdomen, left upper leg and left leg below the knee Exacerbating factors: movement, sitting upright and lifting Relieving factors: immobilization and supine Context: other (Patient having lower back pain which is acute on chronic but worse than normal and it radiates to the abdomen and lower left extremity) Associated symptoms: weakness (Left lower extremity), difficulty walking, loss of sensation in lower extremities (Left lower extremity), abdominal pain and parasthesias (Left lower extremity) Related Data Home Medications ?Medication ?Instructions ?Recorded ?Confirmed ?Last Taken ?Type atorvastatin 10 mg tablet 10 mg PO DAILY 07/26/2209/0608/07/22 09:00 History ixtumlci-gqv-gjlvv ac 400 1 tablet PO DAILY 11/07/22 0 09/23/23 Unknown History mcg-calcium carb 500 mg-vit K1 20 mcg tablet (Women's 50 Plus Daily Formula) gabapentin 300 mg capsule 300 mg PO Q8H 02/28/25 Unkn own History Allergies Allergy/AdvReac Type Severity Reaction Status Date / Time No Known Allergies Allergy Verified 02/28/25 12:59 Review of Systems 2 Review of Systems: All systems reviewed & are unremarkable except as noted in HPI and below Constitutional: Constitutional: Reports no additional constitutional complaints Eyes: Eyes: Reports no additional eye complaints ENT: Reports system reviewed and no additional complaints, except as documented Cardiovascular: Cardiovascular: Reports no additional cardiovascular complaints Respiratory: Respiratory: Reports no additional respiratory complaints Gastrointestinal: Gastrointestinal: Reports no additional gastrointestinal complaints Genitourinary: Genitourinary: Reports no additional female genitourinary complaints Musculoskeletal: Musculoskeletal: Reports no additional musculoskeletal complaints Integumentary/Breasts: Skin/Breast: Reports system reviewed and no additional complaints, except as docu Neurologic: Reports system reviewed and no additional complaints, except as documented Psychiatric: Psychiatric: Reports no additional psychiatric complaints Endocrine: Endocrine: Reports no additional endocrine complaints Hematologic/Lymphatic: Hematologic/Lymphatic: Reports no additional hematologic/lymphatic complaints Allergic/Immunologic: Allergic/Immunologic: Reports no additional allergic/immunologic complaints PMFSH Past Medical History Medical History Arthritis of right foot Subcutaneous mass of right foot Lymphedema due to venous disease Colitis without complication History of colon polyps (~2015) Morbid obesity GERD (gastroesophageal reflux disease) Arthritis Family History Family History Unknown Hypertension Arthritis Hyperlipidemia Social History Social History Smoking status: Never smoker Alcohol intake: never Substance use: never Substance use type: does not use Living arrangements: with family Gender identity (if verbalized by the patient): Female Spiritual care concerns: No Exam 2 Const: Nutritional Appearance: well nourished Orientation/consciousness: p atient oriented x3 Limitations: no limitations Other: Acute distress of pain HENMT: Head: normal to inspection Ears: external ears normal F go/Nose/Sinus: Normal external nose present Eyes: Conjunctivae: conjunctivae normal Pupils: Equal, round and reactive pupils present EOM: EOMs intact bilaterally Neck: Neck: normal visual inspection Chest: Chest palpation & inspection: normal inspection of the chest Resp: Effort & Inspection: normal respiratory effort and not labored A uscultation: clear to auscultation bilaterally and no crackles Cardio: Rate: regular rate Rhythm: regular rhythm Heart sounds: no murmurs GI: Inspection: non-distended GI Palp: Yes Soft to palpation and No Tenderness to palpation present (GI) Auscultation: normal bowel sounds : General: Yes bladder normal to palpation Back/Spine/Pelvis: Back: no CVA tenderness Skin: General skin exam: normal color Rashes: no rashes Wounds: no wounds Neuro: General: patient oriented x3, moves all extremities, no meningeal signs, no focal motor deficits and CN's II-XI intact bilaterally Cranial nerves: Yes Nystagmus not present Speech: normal speech Gait exam (Neuro): gait abnormal (Due to left lower extremity pain) Other: Fast exam negative, NIH is 0, GCS is 15 Extrem: General: normal to inspection, no clubbing, cyanosis or edema and no pedal edema Other: Straight leg test positive on the left lower extremity Psych: Mental Status: mental status grossly normal Affect: normal affect Attitude: cooperative Course Vital Signs Vital signs: Vital Signs Temperature 36.8 C 02/28/25 12:50 Pulse Rate 112 H 02/28/25 12:50 Respiratory Rate 22 H 02/28/25 12:50 Blood Pressure 145/88 H 02/28/25 12:50 Pulse Oximetry 100 02/28/25 12:50 Oxygen Delivery Room Air 02/28/25 12:50 Temperature 36.8 C 02/28/25 12:50 Pulse Rate 112 H 02/28/25 12:50 Respiratory Rate 22 H 02/28/25 12:50 Blood Pressure 145/88 H 02/28/25 12:50 Pulse Oximetry 100 02/28/25 12:50 Oxygen Delivery Room Air 02/28/25 12:50 MDM - Back Pain/Injury MDM Narrative Medical decision making narrative: Patient is a 60-year-old female with left lower extremity pain from a lower spine pain that is acute on chronic and associated abdominal discomfort. We will do CTA of the chest abdomen and pelvis to rule out aneurysm/dissection. Check labs. EKG. Lab Data Attestation: I reviewed the patient's lab results. 02/28/25 13:25 02/28/25 13:25 Labs: Lab Results 02/28/25 Range/Units 13:25 WBC 5.5 (4.8-10.8) K/mm3 RBC 4.49 (4.20-5.40) M/mm3 Hgb 13.9 (12.0-15.0) g/dL Hct 40.9 (35.0-49.0) % MCV 91.1 (78.0-102.0) fL MCH 31.0 (27.0-31.0) pg MCHC 34.0 (32-36) g/dL RDW 12.2 (11.6-14.4) % Plt Count 210 (150-420) K/mm3 MPV 10.3 (9.2-11.8) fl Immature Gran % (Auto) 0.2 H (0.0-0.0) % Neut % (Auto) 68.6 (50.0-70.0) % Lymph % (Auto) 23.8 (18.0-42.0) % Kimball % (Auto) 6.0 (2.0-11.0) % Eos % (Auto) 0.5 L (1.0-6.0) % Baso % (Auto) 0.9 (0.0-1.0) % Lymph # (Auto) 1.31 (1.10-4.50) K/mm3 Kimball # (Auto) 0.33 (0.10-0.90) K/mm3 Eos # (Auto) 0.03 (0.02-0.50) K/mm3 Baso # (Auto) 0.05 (0.00-0.10) K/mm3 Abs Immat Gran (auto) 0.01 H (0.00-0.00) K/mm3 Absolute Neuts (auto) 3.77 (1.70-7.20) K/mm3 Absolute Nucleated RBC 0.00 (0.00-0.00) K/mm3 Nucleated RBC % 0.0 (0-0.0) % PT 11.1 (9.50-12.1) Seconds INR 1.0 APTT 26.7 (23.9-30.70) Sec Sodium 141 (137-145) mmol/L Potassium 3.8 (3.4-5.0) mmol/L Chloride 105 (98-107) mmol/L Carbon Dioxide 27 (22-30) mmol/L Anion Gap 9 (4-12) mmol/L BUN 17 (7-17) mg/dL Creatinine 0.86 (0.7-1.0) mg/dL Estim Creat Clear Calc 59 ml/min Estimated GFR > 60 (59 - ) Glucose 100 (65-110) mg/dL Calculated Osmolality 293 (285-295) mOsm/kg Calcium 9.5 (8.4-10.2) mg/dL Total Bilirubin 0.5 (0.2-1.3) mg/dL AST 36 (14-36) U/L ALT 39 H (6-35) U/L Alkaline Phosphatase 101 (38-126) U/L Troponin I < 0.012 (0.000-0.034) ng/mL Total Protein 6.9 (6.3-8.2) g/dL Albumin 4.5 (3.5-5.1) g/dL Imaging Data Attestation: I personally reviewed and interpreted this imaging study as follows: Radiologist's impression: CTA of the chest abdomen and pelvis was negative for acute process ECG Data EKG #1: Attestation: I personally reviewed and interpreted this ECG as follows: ECG completion date: 02/28/25 ECG completion time: 13:26 EKG Interpretation: normal rate, sinus rhythm, no ectopy, non-specific ST changes, normal QRS, normal QT and NL axis Discharge Plan Discharge Clinical Impression: Acute left lumbar radiculopathy Sciatica Qualifiers: Laterality: left Qualified Code(s): M54.32 - Sciatica, left side Patient Disposition: Home Condition: Stable Instructions: Sciatica (ED), Lumbar Radiculopathy (ED) Patient Language: Citizen Of [place] Prescriptions: No Action gabapentin 300 mg capsule 300 mg PO Q8H atorvastatin 10 mg tablet 10 mg PO DAILY Women's 50 Plus Daily Formula 400 mcg-500 mg calcium-20 mcg Tablet 1 tablet PO DAILY Follow-up/Referrals: Teresa Ghosh MD [Primary Care Provider, Internal Medicine] Time of Disposition: 15:02
--- NOTE | 2025-02-28 13:10 | ECG_ITS ---
Test Date: 2025-02-28 13:19:02 Measurements Intervals [place] Rate: 79 P: 64 OR: 140 QRS: 64 QRSD: 91 T: 57 QT: 375 QTc: 431 Interpretive Statements SINUS RHYTHM WITH SINUS ARRHYTHMIA POSSIBLE LEFT ATRIAL ENLARGEMENT [-0.1mV P-WAVE IN V1/V2] No previous ECG available for comparison Electronically Signed On 02-28-2025 14:23:39 ENROLLMENT MANAGEMENT DIRECTOR by Iris Wolf M.D.
[2025-02-28 13:28] LABS: Hematocrit 40.9 % (35.0-49.0); Hemoglobin 13.9 g/dL (12.0-15.0); Immature Granulocyte Percent A 0.2 % (0.0-0.0); Lymphocytes Absolute Auto 1.31 K/mm3 (1.10-4.50); Mean Corpuscular HGB Conc 34.0 g/dL (32-36); Mean Corpuscular Hemoglobin 31.0 pg (27.0-31.0); Mean Corpuscular Volume 91.1 fL (78.0-102.0); Nucleated Red Blood Cells Absolute Auto 0.00 K/mm3 (0.00-0.00); Nucleated Red Blood Cells Perc 0.0 % (0-0.0); Platelet Count Result 210 K/mm3 (150-420); Red Blood Count 4.49 M/mm3 (4.20-5.40); White Blood Count 5.5 K/mm3 (4.8-10.8)
[2025-02-28] MEDS: dexAMETHasone SOD PHOS INJ 10 MG/ML 1 ML VIAL IV PUSH (13:30)
[2025-02-28] MEDS: HYDROmorphone HCL INJ (*CRX) 2 MG/ML VIAL 0.5 MG IV PUSH (13:30)
[2025-02-28 13:40] LABS: Alanine Aminotransferase 39 U/L (6-35); Albumin Level 4.5 g/dL (3.5-5.1); Alkaline Phosphatase 101 U/L (38-126); Anion Gap 9 mmol/L (4-12); Aspartate Amino Transferase 36 U/L (14-36); Bilirubin,Total 0.5 mg/dL (0.2-1.3); Blood Urea Nitrogen 17 mg/dL (7-17); Calcium 9.5 mg/dL (8.4-10.2); Carbon Dioxide 27 mmol/L (22-30); Chloride 105 mmol/L (98-107); Estimated CRCL calculation 59 ml/min; Estimated Glomerular Filt Rate > 60; Glucose 100 mg/dL (65-110); Osmolality Calculated 293 mOsm/kg (285-295); Potassium 3.8 mmol/L (3.4-5.0); Sodium 141 mmol/L (137-145); Total Protein 6.9 g/dL (6.3-8.2)
[2025-02-28 13:42] LABS: INR 1.0; Partial Thromboplastin Time 26.7 Sec (23.9-30.70); Prothrombin Time 11.1 Seconds (9.50-12.1)
[2025-02-28 13:51] LABS: Troponin I < 0.012 ng/mL (0.000-0.034)
[2025-02-28 15:12] VITALS: BP 130/63; PULSE 70; RESP 18; TEMP 36.6; O2SAT 100
== END 2025-02-28 15:38 | disposition home or self-care (01) ==
PROVIDERS: Emergency Provider Emergency Medicine; PCP Internal Medicine
DX: M54.16 Radiculopathy, lumbar region (principal); M54.32 Sciatica, left side; M79.605 Pain in left leg; Z79.899 Other long term (current) drug therapy
CPT/HCPCS: 36415; 71275; 74174; 80053; 84484; 85025; 85610; 85730; 93005; 96374; 96375; 99284; J1100; J1171; Q9967

== ENCOUNTER 2025-03-03 06:49 | Outpatient (CLI) | payer BC, SELFPAY ==
--- NOTE | ~2025-03-03 | US_ITS ---
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 Findings: Uterus: Post hysterectomy. . Right Ovary:Right ovary not identified. Left Ovary: Left ovary not identified. Free Fluid: None Impression: No etiology to explain the patient's weight loss Reviewed, dictated and finalized at location P. EWATER TREATMENT OPERATOR Impression: No etiology to explain the patient's weight loss
--- NOTE | ~2025-03-03 | US_ITS ---
EXAMINATION: US abdomen complete, 03/03/2025 7:39 DRUPAL WEB DEVELOPER HISTORY: abnormal weigh toss ,elevated liver enzymes COMPARISON: None Technique: Steel-scale and color Doppler images were obtained. Findings: LIVER: Lliver contours intact, no lesions. Normal echogenicity. . GALLBLADDER/BILIARY: The gallbladder appears distended. CBD 9 mm. M[place]ook sign negative. PANCREAS: Pancreas limited by bowel gas. SPLEEN: Unremarkable, no splenomegaly. KIDNEYS: The renal cortices are intact with no solid masses, cysts or calculi. Right Kidney: Right kidney 8.5 x 3.6 x 3.6 cm, normal. Left Kidney: Left kidney 9.2 x 4.6 x 5.7 cm, mild hydronephrosis. AORTA: Normal caliber aorta. IVC: Unremarkable. FREE FLUID: None. Impression: 1. Mild left hydronephrosis. Reviewed, dictated and finalized at location P. AL WEB DEVELOPER Impression: 1. Mild left hydronephrosis.
== END 2025-03-03 06:50 | disposition home or self-care (01) ==
LOC: CHSIMG 06:51
PROVIDERS: PCP Internal Medicine; Visit Provider Internal Medicine
DX: R63.4 Abnormal weight loss (principal); R74.01 Elevation of levels of liver transaminase levels; N13.30 Unspecified hydronephrosis
CPT/HCPCS: 76700; 76856